=== PATIENT | male | born 1970 | race Caucasian/White ===

== ENCOUNTER → 2019-01-02 09:04 | Outpatient (CLI) | payer OTHER, SELFPAY ==
--- NOTE | 2019-01-02 09:09 | US_ITS ---
STUDY: ABDOMINAL ULTRASOUND REASON FOR EXAM: Male, 48 years old. Abdominal pain. TECHNIQUE: Transabdominal ultrasound was performed with real-time and static correia scale imaging. TECHNICAL QUALITY: Limited. Examination limited by bowel gas. COMPARISON: None. FINDINGS: Liver: The liver measures 16.8 cm. There is increased echogenicity consistent with fatty infiltration. The bile ducts are within normal limits. There is hepatic color flow. The direction of portal flow is hepatopetal. There is no demonstrated mass lesion. Portal vein measurement: Gallbladder: Normal distended gallbladder. The gallbladder wall measures 1.8 mm. There is a negative sonographic Messer's sign. There is no pericholecystic fluid. There are no gallstones. Common Bile Duct (C.B.D.): The common bile duct measures 3.8 mm. Pancreas: Normal size of the head, body and tail of the pancreas. There is normal echogenicity of the pancreas. There is no demonstrated pancreatic mass or cyst. Spleen: Normal size of the spleen. The spleen measures 12.3 cm x 4.3 cm x 4 cm. Right Kidney: Normal size of the right kidney. The right kidney measures 11.9 cm x 6.6 cm x 6.3 cm. Normal renal cortex. The right cortex measures 2.1 cm. There is no demonstrated renal mass or cyst. There is no right hydronephrosis. Left Kidney: Normal size of the left kidney. The left kidney measures 11.1 cm x 4.8 cm x 6.1 cm. Normal renal cortex. The left cortex measures 2.1 cm. There is no demonstrated renal mass or cyst. There is no left hydronephrosis. Aorta: Unremarkable I.V.C.: The IVC is patent. There is no ascites. US/Abdomen Complete IMPRESSION: Fatty infiltration of the liver. Electronically Signed: Orlando Roland, at 15:07 EST , Service support ,
== END ==
PROVIDERS: Family Provider Family Medicine; PCP Family Medicine; Referring Provider Nurse Practitioner Family; Visit Provider Nurse Practitioner Family
DX: R10.33 Periumbilical pain (principal)
CPT/HCPCS: 76700

== ENCOUNTER → 2019-01-17 06:44 | Outpatient (CLI) | payer OTHER, SELFPAY ==
--- NOTE | 2019-01-17 06:45 | CT_ITS ---
HISTORY: RIGHT SIDED ABDOMEN PAIN X YEARS . FELT TEARING 3 WEEKS AGO. PRIOR UMBILICAL HERNIA SURGERY ADDITIONAL HISTORY: None provided. TECHNIQUE: CT images were obtained of the abdomen and pelvis with 100 ml of Isovue 300 IV contrast. Enteric contrast was given. A radiation dose optimization technique was used for this scan. Number of images including paperwork: [id number] COMPARISON: Ultrasound 01/02/2019 FINDINGS: LOWER THORAX: No consolidation or pleural effusion. LIVER: Decreased hepatic density may be related to phase of contrast or steatosis. Enlarged, right lobe 18.5 cm craniocaudal. GALLBLADDER: No radiopaque calculi. BILE DUCTS: No significant biliary dilatation. SPLEEN: Unremarkable. PANCREAS: Unremarkable. ADRENAL GLANDS: Unremarkable. KIDNEYS/URETERS: Unremarkable. BOWEL: No bowel obstruction. No significant bowel wall thickening. No localized inflammation. APPENDIX: Normal. FREE FLUID: No significant free fluid. FREE AIR: None. LYMPH NODES: No pathologic appearing adenopathy. PERITONEUM, RETROPERITONEUM AND MESENTERY: Otherwise unremarkable. VASCULATURE: Unremarkable as imaged. PELVIS: Unremarkable bladder and prostate. Vas deferens calcifications. ABDOMINAL WALL: Postoperative changes of the periumbilical abdominal wall. Small fat-containing left inguinal hernia. OSSEOUS AND SOFT TISSUE STRUCTURES: No acute skeletal findings. CT/Abdomen/Pelvis WITH Contrast IMPRESSION: No acute abdominopelvic abnormality. No specific cause of right-sided abdominal pain detected. Individualized dose optimization techniques were used for this CT. at 0802 Reported and signed by: Livia Mendoza MD Electronically Signed: Livia Mendoza MD at 8:02 EST Tel , Service support ,
== END ==
PROVIDERS: Family Provider Family Medicine; PCP Family Medicine; Referring Provider Family Medicine; Visit Provider Family Medicine
DX: R10.9 Unspecified abdominal pain (principal)
CPT/HCPCS: 74177; Q9967

== ENCOUNTER 2021-01-23 15:59 | Emergency (ER) | payer OTHER, SELFPAY ==
[2021-01-23 16:00] VITALS: BP 143/77; PULSE 62; RESP 16; TEMP 36.2; O2SAT 100; BMI 38.7
[2021-01-23 16:46] VITALS: BP 138/85; PULSE 68; RESP 16; O2SAT 97
--- NOTE | 2021-01-23 16:54 | CT_ITS ---
STUDY: CT ABDOMEN AND PELVIS WITHOUT CONTRAST REASON FOR EXAM: Male, 50 years old. Left flank pain RADIATION DOSAGE (If Supplied By Facility): CTDIvol = ( 19.94 ) mGy, DLP = ( 1001.24 ) mGycm TECHNIQUE: Transaxial images were obtained from the dome of the diaphragm to the symphysis pubis without oral contrast, and without intravenous contrast. Sagittal and coronal images were reconstructed. Individualized dose optimization techniques were used for this CT. COMPARISON: 17 January 2019 FINDINGS: The visualized lung bases are unremarkable. The visualized portions of the heart are within normal limits. Liver is mildly enlarged and severely fatty infiltrated. There are no lesions on noncontrast exam.. Normal gallbladder and extrahepatic biliary system. Normal spleen. Normal pancreas. Normal bilateral adrenal glands. Normal right kidney. Normal left kidney. Normal visualized stomach. Normal small intestine. Normal colon. The appendix is visualized and appears normal. Normal abdominal aorta. Normal inferior vena cava. Normal retroperitoneum. Normal urinary bladder. There is prior periumbilical hernia repair without recurrence. Normal abdominal wall. Normal osseous structures. CT/Abdomen/Pelvis without Cont IMPRESSION: 1. No acute abnormality. 2. Severe hepatic steatosis. Electronically Signed: Adriana Villagomez MD at 18:02 EST Tel , Service support ,
[2021-01-23] MEDS: Ondansetron 4 MG/2 ML Vial IV (17:03)
[2021-01-23] MEDS: Morphine 4 MG/ML Syringe IV ×2 (17:03→19:17)
[2021-01-23] MEDS: 0.9% Normal Saline 1,000 ML 1000 ML IV (17:03)
--- NOTE | 2021-01-23 17:32 | ED.VIS.GI ---
HPI HPI - GI History of Present Illness Chief Complaint: Flank Pain Informant: patient Abdominal Pain/Flank Pain Onset: Yesterday Context: Sudden Onset Timing: Waxes and wanes Quality: Sharp Location: LLQ and Left Flank Worsened by: Movement Relieved by: - (Certain positions) Nausea/Vomiting/Emesis GI Symptom: Positive for Nausea; Negative for Vomiting Diarrhea/Melena/Hematochezia GI Symptom: Negative for Diarrhea, Melena and Hematochezia Associated Symptoms Associated Symptoms: Negative for Dysuria, Frequency and Hematuria Narrative Narrative: Patient presents with left flank pain and left lower travon pain that began yesterday. Patient states it began rather suddenly. Patient states it has been waxing and waning. Patient states it is sharp. Patient states it is over the left lower flank and left lower abdomen near his left inguinal area. Patient states it is worse with certain movements and better with certain positions. Patient admits to nausea but denies any vomiting. Patient denies any diarrhea, melena, or hematochezia. Patient denies any dysuria, frequency, or hematuria. Patient states he went to a different emergency department last night and had a CT scan and urinalysis. Patient states he was given a pain medication there which helped somewhat. Patient states he was given a prescription for muscle relaxer which has not been helping. [facility] Medical History Abdominal pain Anxiety and depression CPAP (continuous positive airway pressure) dependence GERD (gastroesophageal reflux disease) Sleep apnea Home Medications clonazepam 2 mg tablet 2 mg PO BID PRN 01/21/19 [History Last Taken Unknown] hydrochlorothiazide 25 mg tablet 25 mg PO DAILY #30 tab 01/21/19 [History Last Taken Unknown] cyclobenzaprine 10 mg PO TID 01/23/21 [History Last Taken Unknown] hydrocodone-acetaminophen 1 tab PO Q6H PRN PRN 3 Days #10 tablet 01/23/21 [Rx Last Taken Unknown] Allergy/AdvReac Type Severity Reaction Status Date / Time Sulfa (Sulfonamide Allergy Severe sanchez Verified 01/23/21 16:00 Antibiotics) lisseth syndrome Family History Father Cancer lung Grandfather Cancer lung Grandmother CVA (cerebral vascular accident) Surgical History History of cardiac catheterization History of colonoscopy History of tonsillectomy History of umbilical hernia repair History of vasectomy Social History Smoking Status: Never smoker ROS ROS ED Constitutional Constitutional ED: Denies chills or fever(s) Eyes Eyes: Denies blurry vision or change in vision ENT ENT ED: Denies rhinorrhea or sore throat Cardiovascular Cardiovascular: Denies chest pain or palpitations Respiratory/Chest Respiratory/Chest: Denies cough or dyspnea Gastrointestinal Gastrointestinal: Reports abdominal pain and nausea; Denies vomiting Genitourinary Genitourinary ED: Denies dysuria or hematuria Musculoskeletal Musculoskeletal: Reports back pain and neck pain Integumentary Denies abscess or rash Neurologic Neurologic: Denies headache(s) or weakness Allergic/Immunologic Allergic/Immunologic ED: Denies mouth swelling or urticaria EXAM Physical Exam Const Vital Signs: 01/23/21 16:00 01/23/21 16:38 01/23/21 16:46 Temperature 97.1 F L Temperature Source Temporal Pulse Rate 62 68 Respiratory Rate 16 16 Respiratory Effort Normal Respiratory Pattern Normal Blood Pressure 143/77 H 138/85 H Blood Pressure Mean 99 102 Pulse Ox 100 97 Oxygen Delivery Method Room Air Room Air 01/23/21 18:40 Temperature Temperature Source Pulse Rate 56 L Respiratory Rate 17 Respiratory Effort Respiratory Pattern Blood Pressure 94/58 L Blood Pressure Mean 70 Pulse Ox 97 Oxygen Delivery Method Room Air Positive well nourished and well developed General Appearance ED: well developed HEENT Reports moist mucous membranes Neck supple and no JVD Resp normal respiratory effort and clear to auscultation bilaterally Cardio regular rate, regular rhythm and no murmurs GI normal to inspection, nondistended, normoactive bowel sounds and non-distended Auscultation: normoactive bowel sounds Palpation: soft and tender LLQ; Negative for guarding or rebound tenderness present Back/Spine Back/Spine Narrative: There is some mild tenderness of the left lower lumbar paraspinal area. There is no midline tenderness. There is no bony crepitance or step-off. Extremity normal to inspection General Extremety ED: Negative for edema or tenderness General Extremity: Negative for edema Neuro oriented x3, CN's II-XII intact bilaterally and no sensory deficits noted Sensorium / Orientation: alert Motor Exam: strength 5/5 throughout Psych mental status grossly normal Skin no rashes or lesions noted MDM MDM MDM Narrative Medical decision making narrative: Patient was given IV fluids and morphine here. CBC was within normal limits. Comprehensive metabolic profile was within normal limits. Anion gap was normal. Urinalysis does not show any evidence of urinary tract infection or hematuria. CT scan of the abdomen pelvis was obtained. There is no acute intra-abdominal abnormality. There is hepatic steatosis noted. This was interpreted by the radiologist and reviewed by myself. Patient was given a repeat dose of morphine here. Patient was advised of his findings. Patient was instructed to follow-up with his primary care physician in 5 to 7 days. Patient was given a dose of Gibbon here and a prescription for a short course of Gibbon. Patient understood and was agreeable with the plan. All questions were answered. Lab Data Labs: Laboratory Results - last 24 hr 01/23/21 01/23/21 01/23/21 16:10 16:10 18:52 WBC 6.4 RBC 4.87 Hgb 16.2 Hct 46.2 MCV 94.9 H MCH 33.3 H MCHC 35.1 RDW Std Deviation 40.9 RDW Coeff of Abad 11.8 Plt Count 232 MPV 9.2 Immature Gran % (Auto) 0.300 Neut % (Auto) 41.7 L Lymph % (Auto) 46.8 H Hendricks % (Auto) 8.1 Eos % (Auto) 2.2 Baso % (Auto) 0.9 Absolute Neuts (auto) 2.7 Absolute Lymphs (auto) 3.01 Nucleated RBC % 0 Sodium 141 Potassium 3.7 Chloride 109 H Carbon Dioxide 28.0 Anion Gap 4 L BUN 10 Creatinine 1.16 Estim Creat Clear Calc 77.79 Est GFR (MDRD) Af Amer 85 Est GFR (MDRD) Non-Af 70 BUN/Creatinine Ratio 8.6 L Glucose 94 Calcium 8.7 Total Bilirubin 0.60 AST 24 ALT 44 Alkaline Phosphatase 57 Total Protein 7.4 Albumin 3.7 Globulin 3.7 Albumin/Globulin Ratio 1.0 Urine Color Yellow Urine Clarity Clear Urine pH 6.5 Ur Specific Duck 1.015 Urine Protein Negative Urine Glucose (UA) Normal Urine Ketones Negative Urine Occult Blood 10 H Urine Nitrite Negative Urine Bilirubin Negative Urine Urobilinogen 1 H Ur Leukocyte Esterase Negative Urine RBC 0-5 SEEN Urine WBC 0-5 SEEN Ur Squamous Epith Cells 0-5 SEEN Calcium Oxalate Crystal Not Reportable Urine Bacteria 0 SEEN Urine Mucus 0 SEEN Radiography Diagnostic Testing: Clinical Impression(s) from Imaging Studies Abdomen/Pelvis CT 01/23/21 16:54 IMPRESSION: 1. No acute abnormality. 2. Severe hepatic steatosis. Electronically Signed: Adriana Villagomez MD at 18:02 EST Tel , Service support , Discharge Plan Triage Chief Complaint: Flank Pain ED Provider: Kenn Mcgrath Dx/Rx/DC Orders Clinical Impression: Left flank pain Instructions: ED Flank Pain, Uncertain Cause Prescriptions: New hydrocodone-acetaminophen [hydrocodone-acetaminophen] 1 TABLET tablet 1 tab PO Q6H PRN PRN (Reason: Pain) 3 Days Qty: 10 RF: 0 No Action hydrochlorothiazide 25 mg tablet 25 mg PO DAILY Qty: 30 RF: 0 clonazepam 2 mg tablet 2 mg PO BID PRNRF: 0 cyclobenzaprine 10 mg tablet 10 mg PO TID RF: 0 Primary Care Provider: Joe Peres Referrals: Joe Peres MD [Primary Care Provider] - 3-5 Days Disposition Disposition: Home, Self Care
[2021-01-23 17:41] LABS: Absolute Lymphocyte Count 3.01 X10^3/uL (0.83-4.51); Absolute Neutrophil Count 2.7 X10^3/uL (2.0-7.7); Basophil# 0.06 X10^3/uL; Basophil% 0.9 % (0-1); Eosinophil# 0.14 X10^3/uL; Eosinophils% 2.2 % (0-5); Hematocrit 46.2 % (40-54); Hemoglobin 16.2 g/dL (13.0-16.5); Lymphocyte # 3.01 X10^3/ul (0.83-4.51); Lymphocyte % 46.8 % (19-41); Mean Corp Hgb Conc 35.1 g/dL (32-36); Mean Corpuscular Hgb 33.3 pg (27.0-32.0); Mean Corpuscular Volume 94.9 fL (80-94); Mean Platelet Vol. 9.2 fl (6.2-12.0); Monocyte# 0.52 X10^3/uL; Monocyte% 8.1 % (0-10); NRBC Flagged by Analyzer 0 % (0-5); Neutrophil # 2.68 X10^3/uL (2.7-7.7); Neutrophil % 41.7 % (47-70); Platelet Count 232 K/mm3 (150-450); RBC Distribution Width CV 11.8 % (11.6-14.6); RBC Distribution Width SD 40.9 fl (35.1-43.9); Red Blood Count 4.87 M/mm3 (4.6-6.2); White Blood Count 6.4 K/mm3 (4.4-11.0)
[2021-01-23 17:59] LABS: AST(SGOT) 24 U/L (15-37); Alanine Aminotransfer ALT/SGPT 44 U/L (16-61); Albumin, Serum 3.7 g/dL (3.2-5.0); Alkaline Phosphatase 57 U/L (45-117); Anion Gap 4 (5-15); BUN 10 mg/dL (7-18); BUN/Creat Ratio 8.6 RATIO (10-20); Calcium,Total 8.7 mg/dL (8.5-10.1); Chloride 109 mmol/L (98-107); Creatinine, Serum 1.16 mg/dL (0.70-1.30); EST Glomerular Filtration Rate 70 mL/min (>60); Est Glom Filt Rate - Afr Amer 85 mL/min (>60); Estimated Creatinine Clearance 77.79 ml/min; Globulin 3.7 g/dL (2.2-4.2); Glucose 94 mg/dL (74-106); Potassium 3.7 mmol/L (3.5-5.1); Protein, Total 7.4 g/dL (6.4-8.2); Sodium Level 141 mmol/L (136-145)
[2021-01-23 18:40] VITALS: BP 94/58; PULSE 56; RESP 17; O2SAT 97
[2021-01-23 18:57] LABS: Bacteria 0 SEEN /hpf (None Seen); Mucous, Urine 0 SEEN /hpf (<or=2+)
[2021-01-23 19:09] LABS: Color, Urine Yellow (Yellow); Glucose, Dipstick Normal (Normal); Ketone-Dipstick Negative (Negative); Leukocyte Esterase-Dipstick Negative /ul (Negative); Nitrite-Dipstick Negative (Negative); Occult Blood-Urine 10 /ul (Negative); Protein-Dipstick Negative (Negative); Specific Gravity, Urine 1.015 (1.002-1.030); Urine Bilirubin Dipstick Negative (Negative); Urine Clarity Clear (Clear); Urine Urobilinogen 1 mg/dl (Normal); Urine pH 6.5 (5.0 - 8.0)
[2021-01-23 19:30] LABS: Red Blood Cells-Urine 0-5 SEEN /hpf (0-5); Squamous Epithelial Cells - UA 0-5 SEEN /hpf (0-5); White Blood Cells 0-5 SEEN /hpf (0-5)
[2021-01-23] MEDS: HYDROcodone Bitartrate/Apap 5/325 Tablet PO (20:24)
[2021-01-23 20:33] VITALS: BP 97/49; PULSE 52; RESP 16; O2SAT 96
== END 2021-01-23 20:35 | disposition home or self-care (01) ==
PROVIDERS: Emergency Provider Emergency Medicine; PCP Family Medicine
DX: R10.9 Unspecified abdominal pain (principal); R11.0 Nausea; K76.0 Fatty (change of) liver, not elsewhere classified; K21.9 Gastro-esophageal reflux disease without esophagitis; G47.30 Sleep apnea, unspecified
CPT/HCPCS: 74176; 80053; 81001; 85025; 96361; 96374; 96375; 96376; 99284; J7030; A4216; J2405